=== PATIENT | male | born 1945 | race Caucasian/White ===

== ENCOUNTER → 2021-10-17 | Outpatient (CLI) | payer MEDICARE, MEDICAID ==
[2021-10-17 16:50] LABS: BASOPHIL # 0.1 10^3/uL (0.0-0.1); BASOPHIL % 0.7 % (0.0-0.2); EOSINOPHIL # 0.3 10^3/uL (0.0-0.2); EOSINOPHIL % 4.9 % (0.0-5.0); LYMPHOCYTES # 1.63 10^3/uL1 (1.0-4.8); LYMPHOCYTES % 23.5 % (24.0-44.0); MEAN CORP HGB 33.1 pg (26-34); NEUTROPHIL # 3.9 10^3/uL (1.8-7.7); NEUTROPHILS % 55.9 % (41.0-85.0); PLATELET COUNT 192 10^3/uL (150-400); RED CELL DISTRIBUTION WIDTH 12.7 % (11.5-14.5)
[2021-10-17 17:08] LABS: CARBON DIOXIDE 29.3 mmol/L (20.0-32)
== END | disposition home or self-care (01) ==
LOC: NPLAB 15:59
PROVIDERS: ATTEND Family Medicine
DX: I12.9 Hypertensive chronic kidney disease with stage 1 through stage 4 chronic kidney disease, or unspecified chronic kidney disease (principal); N18.2 Chronic kidney disease, stage 2 (mild); J44.9 Chronic obstructive pulmonary disease, unspecified; E78.5 Hyperlipidemia, unspecified; E56.9 Vitamin deficiency, unspecified
CPT/HCPCS: 36415; 80053; 80061; 85025

== ENCOUNTER → 2021-10-23 | Outpatient (CLI) | payer MEDICARE, MEDICAID ==
[2021-10-23 16:26] LABS: BASOPHIL % 0.5 % (0.0-0.2); EOSINOPHIL # 0.3 10^3/uL (0.0-0.2); EOSINOPHIL % 4.4 % (0.0-5.0); LYMPHOCYTES # 1.76 10^3/uL1 (1.0-4.8); LYMPHOCYTES % 23.9 % (24.0-44.0); MEAN CORP HGB 32.4 pg (26-34); MONOCYTES % 13.1 % (5.0-12.0); NEUTROPHIL # 4.2 10^3/uL (1.8-7.7); NEUTROPHILS % 57.7 % (41.0-85.0); PLATELET COUNT 200 10^3/uL (150-400); RED CELL DISTRIBUTION WIDTH 13.4 % (11.5-14.5)
== END | disposition home or self-care (01) ==
LOC: NPLAB 15:29
PROVIDERS: ATTEND Family Medicine
DX: J44.9 Chronic obstructive pulmonary disease, unspecified (principal); E87.6 Hypokalemia; E78.5 Hyperlipidemia, unspecified; I10 Essential (primary) hypertension; E55.9 Vitamin D deficiency, unspecified
CPT/HCPCS: 36415; 80048; 82306; 85025

== ENCOUNTER → 2021-10-30 | Outpatient (CLI) | payer MEDICARE, MEDICAID ==
[2021-10-30 16:33] LABS: BASOPHIL # 0.1 10^3/uL (0.0-0.1); BASOPHIL % 0.8 % (0.0-0.2); EOSINOPHIL # 0.3 10^3/uL (0.0-0.2); EOSINOPHIL % 2.9 % (0.0-5.0); LYMPHOCYTES # 1.93 10^3/uL1 (1.0-4.8); LYMPHOCYTES % 20.2 % (24.0-44.0); MONOCYTES # 1.5 10^3/uL (0.3-0.8); MONOCYTES % 15.9 % (5.0-12.0); NEUTROPHIL # 5.8 10^3/uL (1.8-7.7); NEUTROPHILS % 60.2 % (41.0-85.0); PLATELET COUNT 212 10^3/uL (150-400); RED CELL DISTRIBUTION WIDTH 14.2 % (11.5-14.5)
[2021-10-30 16:40] LABS: CARBON DIOXIDE 26.3 mmol/L (20.0-32)
== END | disposition home or self-care (01) ==
LOC: NPLAB 15:46
PROVIDERS: ATTEND Family Medicine
DX: I10 Essential (primary) hypertension (principal); J44.9 Chronic obstructive pulmonary disease, unspecified; E78.5 Hyperlipidemia, unspecified; E87.6 Hypokalemia
CPT/HCPCS: 36415; 80048; 85025